=== PATIENT | female | born 1980 | race Caucasian/White ===

== ENCOUNTER 2017-06-30 22:29 | Emergency (ER) | payer OTHER ==
[~2017-06-30] VITALS: Ht 162.6 cm; Wt 77.1 kg
[2017-06-30] MEDS ORDERED: HYDRALAZINE HCL25 MG PO (22:55)
[2017-06-30] MEDS ORDERED: VENTOLIN HFA18 GM INH (22:55)
[2017-06-30] MEDS ORDERED: AMLODIPINE BESYL5 MG PO (22:55)
[2017-06-30] MEDS ORDERED: DYAZIDE 37.5-251 EA PO (22:56)
[2017-06-30] MEDS ORDERED: ZITHROMAX250 MG PO (22:56)
[2017-06-30] MEDS ORDERED: PNV PRENATAL P1 EACH PO (22:56)
== END 2017-07-01 00:50 | disposition home or self-care (01) ==
LOC: ED 22:29
DX: R06.02 Shortness of breath (principal); Z87.891 Personal history of nicotine dependence; Z88.2 Allergy status to sulfonamides; Z79.899 Other long term (current) drug therapy
CPT/HCPCS: 71046; 99283

== ENCOUNTER 2017-08-01 08:46 | Emergency (ER) | payer OTHER ==
[~2017-08-01] VITALS: Ht 162.6 cm; Wt 74.8 kg
[~2017-08-01 08:46] MED LIST: AMLODIPINE BESYL5 MG PO; DYAZIDE 37.5-251 EA PO; HYDRALAZINE HCL25 MG PO; PNV PRENATAL P1 EACH PO; VENTOLIN HFA18 GM INH; ZITHROMAX250 MG PO
[2017-08-01] MEDS ORDERED: LATUDA60 MG PO (09:13)
[2017-08-01] MEDS ORDERED: NORCO 5-325 TA1 EACH PO (09:14)
== END 2017-08-01 13:00 | disposition home or self-care (01) ==
LOC: ED 08:46
DX: N92.0 Excessive and frequent menstruation with regular cycle (principal); I50.9 Heart failure, unspecified; Z88.2 Allergy status to sulfonamides; Z87.891 Personal history of nicotine dependence; Z79.899 Other long term (current) drug therapy
CPT/HCPCS: 76830; 76856; 80053; 81001; 84703; 85025; 96360; 96361; 99284; J7120

== ENCOUNTER 2018-03-14 15:03 | Emergency (ER) | payer OTHER ==
[~2018-03-14] VITALS: Ht 162.6 cm; Wt 81.6 kg
[~2018-03-14 15:03] MED LIST changes: +LATUDA60 MG PO; +NORCO 5-325 TA1 EACH PO
[2018-03-14] MEDS ORDERED: LOPERAMIDE2 MG PO (15:18)
[2018-03-14] MEDS ORDERED: BUSPIRONE HCL10 MG PO (15:18)
[2018-03-14] MEDS ORDERED: DOXYCYCLINE HY100 MG PO (15:44)
== END 2018-03-14 16:30 | disposition home or self-care (01) ==
LOC: ED 15:03
PROC: 0U9MXZZ Drainage of Vulva, External Approach (ICD-10-PCS; principal; 2018-03-14)
DX: N76.4 Abscess of vulva (principal); I50.9 Heart failure, unspecified; I27.20 Pulmonary hypertension, unspecified; Z87.891 Personal history of nicotine dependence; Z88.2 Allergy status to sulfonamides; Z79.899 Other long term (current) drug therapy
CPT/HCPCS: 56405; 99283-25

== ENCOUNTER 2018-10-22 18:56 | Emergency (ER) | payer OTHER ==
[~2018-10-22] VITALS: Ht 162.6 cm; Wt 81.7 kg
[~2018-10-22 18:56] MED LIST changes: +BUSPIRONE HCL10 MG PO; +DOXYCYCLINE HY100 MG PO; +HYDROXYZINE HCL50 MG PO; +LATUDA20 MG PO; +LOPERAMIDE2 MG PO; +SERTRALINE HCL50 MG PO
--- OUTSIDE RECORDS SUMMARY | 2018-10-22 19:00 | XMS ---
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 Guidelines Source: [facility] [place] Guidelines Date: 10/22/2018 Care Coordination: Mental health services provided by [facility].\T\nbsp; Please contact [facility] with mental health concerns.\T\nbsp; [facility]: [phone]\T\ nbsp; Amanda: [phone]. E.D. VISIT COUNT (12 MO.) 3 [facility]. TOTAL 3 NOTE: Visits indicate total known visits. ED/UCC VISIT TRACKING (12 MO.) 10/22/2018 18:58 [facility] [place] TYPE: Emergency COMPLAINT: - LT SHOULDER PAIN/WRK RELATED INJURY 10/19/2018 05:36 [facility] [place] TYPE: Emergency COMPLAINT: - SKIN PROBLEM DIAGNOSES: - Allergy status to sulfonamides status - Hypertensive heart disease with heart failure - Abscess of vulva - Disorder of the skin and subcutaneous tissue, unspecified - Heart failure, unspecified - Other usp (current) drug therapy - Personal history of nicotine dependence 03/14/2018 15:03 [facility] [place] TYPE: Emergency COMPLAINT: - POSS ABSCESS DIAGNOSES: - Pelvic and perineal pain - Allergy status to sulfonamides status - Other usp (current) drug therapy - Heart failure, unspecified - Personal history of nicotine dependence - Pulmonary hypertension, unspecified - Abscess of vulva INPATIENT VISIT TRACKING (12 MO.) No inpatient visits to display in this time frame [email or web address]
== END 2018-10-22 22:15 | disposition home or self-care (01) ==
LOC: ED 18:56
DX: S46.912A Strain of unspecified muscle, fascia and tendon at shoulder and upper arm level, left arm, initial encounter (principal); I11.0 Hypertensive heart disease with heart failure; I50.9 Heart failure, unspecified; Z87.891 Personal history of nicotine dependence; Z88.2 Allergy status to sulfonamides; Z79.899 Other long term (current) drug therapy; W18.49XA Other slipping, tripping and stumbling without falling, initial encounter
CPT/HCPCS: 73030; 99283